=== PATIENT | female | born 1945 | race Caucasian/White ===

== ENCOUNTER 2017-07-06 05:20 | Day surgery (SDC) | payer MEDICARE, BC ==
[2017-07-05 09:26] LABS: BASOPHILS 0.3 % (0-2); EOSINOPHILS 1.6 % (0-7); HEMATOCRIT 43.5 % (36.0-48.0); HEMOGLOBIN 14.2 g/dL (12-16); IMMATURE GRANULOCYTES 0.2 % (0-5); LYMPHOCYTES 29.8 % (15-50); MCH 32.1 pg (26.0-34.0); MCHC 32.6 g/dL (31.0-37.0); MCV 98.2 fL (80.0-100.0); MEAN PLATELET VOLUME 9.7 fL (7.4-10.4); MONOCYTES 12.8 % (2-11); NEUTROPHILS 55.3 % (40-80); PLATELET COUNT 211 10x3/uL (130-400); RBC 4.43 10x6/uL (4.00-5.40); WBC 5.8 10x3/uL (4.8-10.8)
[~2017-07-06] VITALS: Ht 152.4 cm; Wt 83.9 kg
[~2017-07-06 05:20] MED LIST: ACETAMINOPHEN500 M1 PO; ADVAIR 250/501 DISK INH; ARICEPT10 MG PO; ASPIRIN EC81 M1 PO; BAYER CHEWABLE81 MG PO; CLARITIN-D1 TAB.SR1 PO; CYCLOBENZAPRINE5 MG PO; CYTOTEC200 MCG PO; DESERYL100 MG PO; HYDROCODON-ACE1 EAC7; LEXAPRO10 MG PO; LOMOTIL TABLET1 TAB PO; LUNESTA2 M1 PO; LYRICA75 MG PO; MUCINEX600 MG PO; NAMENDA XR28 MG PO; NAMZARIC 7 MG-1 EACH PO; OYST-CAL-5001 TAB PO; PAXIL20 MG PO; REQUIP0.25 MG PO; SINGULAIR10 MG PO; TESSALON PERLE100 MG PO; VENTOLIN HFA18 GM INH; VITAMIN B-121000 MCG PO; VITAMIN D5000 UNIT PO; ZOVIRAX400 MG PO
[2017-07-06 06:43] VITALS: BP 117/70; Ht 152.4 cm; Wt 83.9 kg
--- NOTE | 2017-07-06 07:05 | HP ---
PATIENT: MADHAVI GALAN MEDICAL RECORD: [id number] ACCOUNT: [id number] LOCATION:[facility] : 45 ADMISSION DATE: 07/06/17 HISTORY AND PHYSICAL EXAMINATION DATE OF SURGERY: In a.m. HISTORY OF PRESENT ILLNESS: This patient is a 72-year-old 2, para 1, spontaneous AB 1, white female with postmenopausal bleeding, cervical stenosis precluding an in office biopsy to evaluate. She is scheduled for exam under anesthesia, endometrial biopsy, and appropriate procedures in a.m. PHYSICAL EXAMINATION: VITAL SIGNS: Blood pressure 130/70, weight is 186 pounds with a BMI of 36. HEENT: Unremarkable. GENERAL: A pleasant white female in no acute distress. HEART: Regular rate and rhythm. LUNGS: Clear to auscultation. ABDOMEN: Obese. No organomegaly has been appreciated. PELVIC: Current and revealed a uterus of normal size with a stenotic cervix, precluding in-office biopsy. No masses were appreciated. EXTREMITIES: No cyanosis, clubbing or edema. NEUROLOGIC: Grossly intact. CURRENT MEDICATION LIST: Includes medications for asthma, antibiotics, antidepressants. FAMILY HISTORY: Noncontributory. IMPRESSION: Postmenopausal bleeding, stenotic cervix, preventing an in-office biopsy. PLAN: Exam under anesthesia, endocervical curettage, hysteroscopy, endometrial biopsy, and endometrial curettage, all indicated procedures. I have discussed the potential complications of this procedure including anesthesia, infection, bleeding, uterine perforation with injury to other organs and have answered all her questions. The patient's was present for discussion and participated. TRANSINT:[id number] Voice Confirmation ID: [id number] DOCUMENT ID: [id number] MADHAVI LENTZ MD at 0705 CC: [id number] DICTATION DATE: 07/05/17 1320 SUPPLY TEACHER: 07/05/17 1333 REG [facility] [address] [place] [address]
[2017-07-07] MEDS ORDERED: PHENERGAN6.25 MG/5 PO (04:59)
== END 2017-07-06 10:10 | disposition home or self-care (01) ==
LOC: D.OPS 05:20 → D.PAN 07:30 → D.OPS 07:30
PROVIDERS: Obstetrics & Gynecology
DX: N95.0 Postmenopausal bleeding (principal); N88.2 Stricture and stenosis of cervix uteri; Z01.812 Encounter for preprocedural laboratory examination

== ENCOUNTER 2017-07-06 20:10 | Observation (INO) | payer MEDICARE, BC ==
[~2017-07-06] VITALS: Ht 152.4 cm; Wt 86.4 kg
[2017-07-06 21:40] LABS: BASOPHILS 0 % (0-2); EOSINOPHILS 0 % (0-7); HEMATOCRIT 36.5 % (36.0-48.0); HEMOGLOBIN 11.9 g/dL (12-16); IMMATURE GRANULOCYTES 0.2 % (0-5); LYMPHOCYTES 8.5 % (15-50); MCH 32.1 pg (26.0-34.0); MCHC 32.6 g/dL (31.0-37.0); MCV 98.4 fL (80.0-100.0); MEAN PLATELET VOLUME 9.9 fL (7.4-10.4); MONOCYTES 5.5 % (2-11); NEUTROPHILS 85.8 % (40-80); PLATELET COUNT 207 10x3/uL (130-400); RBC 3.71 10x6/uL (4.00-5.40)
[2017-07-06 21:41] LABS: WBC 8.6 10x3/uL (4.8-10.8)
[2017-07-06 22:12] LABS: ALBUMIN 3.1 g/dL (3.4-5.0); ALKALINE PHOSPHATASE 51 U/L (46-116); ALT (SGPT) 31 U/L (10-68); BILIRUBIN - TOTAL 0.25 mg/dL (0.2-1.3); CALC OSMOLALITY 281 mosm/kg (275-300); CALCIUM 8.2 mg/dL (8.5-10.1); CARBON DIOXIDE 24.2 mmol/L (21.0-32.0); CHLORIDE - SERUM 106 mmol/L (98-107); GLUCOSE 122 mg/dL (74-106); PROTEIN - SERUM 6.4 g/dL (6.4-8.2); SODIUM 140 mmol/L (136-145); UREA NITROGEN 19 mg/dL (7-18); eGFR NON AFRICAN AMERICAN 58 mL/min (90-120)
[2017-07-06 22:22] LABS: AMYLASE - SERUM 39 U/L (25-115); LIPASE 106 U/L (73-393); PRO BNP 457 pg/mL (0-125); THYROID STIMULATING HORMONE 0.65 uIU/mL (0.36-3.74)
--- NOTE | 2017-07-06 22:24 | NUR ---
REPORT RECEIVED FROM LIA RONDON.
[2017-07-06 22:25] LABS: TROPONIN-I < 0.017 ng/mL (0.000-0.060)
--- NOTE | 2017-07-06 23:31 | NUR ---
ARRIVED TO ROOM VIA STRETCHER, ACCOMPANIED BY HOSPITAL STAFF. ASSISSTED TO BED. BECAME VERY DISORIENTED AND AGITATED WITH NURSING STAFF. ASSISSTED BACK TO ROOM AND CALLED . WILL CONTINUE TO MONITOR. SEE NURSE ASSESSMENT.
[2017-07-07 02:21] VITALS: BP 106/53
[2017-07-07 02:42] VITALS: Ht 152.4 cm; Wt 86.4 kg
[2017-07-07] MEDS ORDERED: PHENERGAN6.25 MG/5 PO (04:59)
--- NOTE | 2017-07-07 07:16 | NUR ---
PT UP TO CHAIR, LT WRIST IV SL, RESP EVEN AND UNLABORED. PT A/O X4, DENIES ANY NEEDS AT THIS TIME, CALL LIGHT IN REACH, NAD NOTED, WILL CONTINUE PLAN OF CARE.
[2017-07-07 07:42] VITALS: BP 134/57
[2017-07-07 12:00] VITALS: BP 126/61
--- NOTE | 2017-07-07 14:19 | NUR ---
D/C LT WRIST IV, TIP INTACT, PT WAITING ON PAPER WORK. PT DENIES ANY NEEDS AT THIS TIME, FAMILY AT BEDSIDE, NAD NOTED.
--- NOTE | 2017-07-07 15:10 | NUR ---
PT'S , ASKING WHEN THE DISCHARGE PAPERS WILL BE READY, INFOMRED HIM THAT WE WERE WAITING TO HERE BACK FROM THE [facility] TO MAKE SURE IT WAS OK FOR HER TO GO BACK. STATED " THEY ALREADY KNOW THAT SHE IS COMING, I DONT CARE ABOUT THE PAPER WORK, YOU CAN GET ME A WHEELCHAIR, OR WE ARE WALKING OUT." TRIED TO EXPLAINED TO PT'S THAT THEY NEEDED TO WAIT FOR DISCHARGE PAPERS. BUT HE DID NOT LISTEN AND WENT TO GET PT FROM ROOM AND WALKED OUT. NOTIFIED CHRISTINA WOOL SACKER AND SHARON LEWIS RN.
--- NOTE | 2017-07-07 15:28 | NUR ---
PATIENT SEEN WALKING DOWN HALLWAY TOWARDS ELEVATOR WITH SPOUSE. DID NOT WANT TO WAIT ON DISCHARGE INSTRUCTIONS TO BE FINALIZED PER SORAIDA/ALCON.
--- NOTE | 2017-07-07 15:35 | NUR ---
Patient Name: MADHAVI GALAN Admission Status: ER Accout number: [id number] Admission Date: 07-06-2017 : 1945 Admission Diagnosis: Attending: ISIDRO, Current LOS: 1 Anticipated DC Date: 07-07-2017 Planned Disposition: Assisted Living Primary Insurance: MEDICARE A & B PLANNED EXTERNAL PROVIDER: [facility] Discharge Planning Comments: CM RECEIVED DISCHARGE ORDER, CALLED [facility] [phone], SPOKE TO NURSE BLANKENSHIP WHO ASKED THAT DISCHARGE INFORMATION BE SENT WITH PT AND SHE HAS ALREADY SPOKEN TO THE NURSE TODAY. CM SPOKE TO BEDSIDE NURSE WHO REPORTED THAT PT'S SPOUSE DID NOT WANT TO WAIT ON DISCHARGE PAPERS AND INSTRUCTION, HE LEFT WITH PT BACK TO THE [facility]. POLE PEELING MACHINE OPERATOR NURSE REPORTS INSTRUCTIONS WERE NOT COMPLETED PRIOR TO PT'S DEPARTURE. DANAE CALLED AND SPOKE TO [id number] WHO ASKED THAT THE BEDSIDE NURSE CALL AND SPEAK TO [facility] NURSE LEONEL AT [phone]. CM LEFT DETAILED NOTE WITH REQUEST FOR BEDSIDE NURSE SORAIDA. CAL SYED, CASE MANAGEMENT Mental Health Consultant: Cal Syed
== END 2017-07-07 15:15 | disposition home or self-care (01) ==
LOC: D.ER 20:10 → OBSVTIME 22:00 → D.M2 22:00
PROVIDERS: Family Medicine; ADMIT Family Medicine
DX: Z74.09 Other reduced mobility (principal); W18.30XA Fall on same level, unspecified, initial encounter; M79.7 Fibromyalgia; M06.9 Rheumatoid arthritis, unspecified; G89.29 Other chronic pain

== ENCOUNTER → 2017-08-29 16:53 | Outpatient (CLI) | payer MEDICARE, BC ==
[~2017-08-29 16:53] MED LIST changes: +PHENERGAN6.25 MG/5 PO
== END | disposition home or self-care (01) ==
LOC: D.MAMMO 05-25 11:45
DX: Z12.31 Encounter for screening mammogram for malignant neoplasm of breast (principal)